=== PATIENT | female | born 1990 ===

== ENCOUNTER 2018-02-16 19:05 | Emergency (ER) | payer MEDICAID ==
[2018-02-16 19:15] VITALS: O2SAT 100; BMI 26.2
[2018-02-16 20:09] VITALS: PULSE 63
--- NOTE | 2018-02-16 20:19 | ED PDOC ---
HPI: Chest Pain Time Seen by Provider: 02/16/18 20:04 Chief Complaint (Nursing): Chest Pain Chief Complaint (Provider): chest pain History Per: Patient History/Exam Limitations: no limitations Onset/Duration Of Symptoms: Days (2), Waxing/Waning Current Symptoms Are (Timing): Still Present Quality: Pressure Exacerbating Factors: None Additional Complaint(s): 27 y/o female presents for evaluation of intermittent midsternal chest pressure x 2 days. Patient states when symptoms present she also feels her heart race briefly, making it difficult for her to catch her breath. Denies fever, headache, dizziness, cough, congestion, leg pain/swelling, recent travel, OCP use. Patient also reports left lower back/flank pain x 1 week; states she was evaluated at [facility] ED for same and diagnosed with a UTI and prescribed Macrobid and Ibuprofen but pain persists. Denies fever, nausea/vomiting, dysuria, hematuria. Past Medical History Reviewed: Historical Data, Nursing Documentation, Vital Signs Vital Signs: Last Vital Signs Temp 97.9 F 02/16/18 19:14 Pulse 63 02/16/18 20:10 Resp 23 02/16/18 20:10 BP 132/85 02/16/18 20:10 Pulse Ox 100 02/16/18 21:11 - Medical History PMH: No Chronic Diseases - Surgical History Other surgeries: heart sx for murmur age 11 - Family History Family History: States: Unknown Family Hx - Social History Current smoker - smoking cessation education provided: No Ex-Smoker (has not smoked in the last 12 months): No Alcohol: None Drugs: Denies - Immunization History Hx Tetanus Toxoid Vaccination: No Hx Influenza Vaccination: Yes (2015) Hx Pneumococcal Vaccination: No - Home Medications Home Medications: Ambulatory Orders Medication Instructions Recorded Ibuprofen [Motrin] 600 mg PO Q6 PRN #20 tab 02/12/18 Nitrofurantoin Macrocrystals 100 mg PO BID #10 cap 02/12/18 [Macrobid] - Allergies Allergies/Adverse Reactions: Allergies Allergy/AdvReac Type Severity Reaction Status Date / Time No Known Allergies Allergy Verified 01/20/17 17:54 Wells Criteria for PE - Wells Criteria for Pulmonary Embolism Clinical Signs and Symptoms of DVT: No P.E is #1 Diagnosis, or Equally Likely: No Heart Rate >100: No Immobilization at least 3 days;Surgery previous 4 weeks: No Previous, objectively diagnosed PE or DVT: No Hemoptysis: No Malignancy w/treatment within 6 months, or palliative: No Total Score: 0 Review of Systems ROS Statement: Except As Marked, All Systems Reviewed And Found Negative Cardiovascular: Positive for: Chest Pain, Palpitations Gastrointestinal: Positive for: Abdominal Pain (left flank pain) Musculoskeletal: Positive for: Back Pain Physical Exam - Reviewed Nursing Documentation Reviewed: Yes Vital Signs Reviewed: Yes - Physical Exam Appears: Positive for: Well, Non-toxic, No Acute Distress Head Exam: Positive for: ATRAUMATIC, NORMAL INSPECTION, NORMOCEPHALIC Skin: Positive for: Normal Color Eye Exam: Positive for: Normal appearance ENT: Positive for: Normal ENT Inspection Cardiovascular/Chest: Positive for: Regular Rate, Rhythm Respiratory: Positive for: Normal Breath Sounds Gastrointestinal/Abdominal: Positive for: Bowel Sounds, Soft, Tenderness (left flank) Back: Positive for: Normal Inspection Extremity: Positive for: Normal ROM Neurologic/Psych: Positive for: Alert, Oriented - Laboratory Results Result Diagrams: 02/16/18 20:36 02/16/18 20:36 - ECG ECG: Positive for: Viewed By Me (reviewed by ED attending) ECG Rhythm: Positive for: Sinus Rhythm (PACs) O2 Sat by Pulse Oximetry: 100 Pulse Ox Interpretation: Normal - Radiology X-Ray: Viewed By Me X-Ray Interpretation: No Acute Disease - Progress ED Course And Treament: labs, ekg, chest xray, CT renal protocol, IV toradol EXAM: CT Abdomen and Pelvis Without Intravenous Contrast EXAM DATE/TIME: 02/16/2018 8:59 PM CLINICAL HISTORY: 27 years old, female; Pain; Abdominal pain; Flank; Left; Additional info: Left flank pain TECHNIQUE: Axial computed tomography images of the abdomen and pelvis without intravenous contrast. All CT scans at this facility use at least one of these dose optimization techniques: automated exposure control; mA and/or kV adjustment per patient size (includes targeted exams where dose is matched to clinical indication); or iterative reconstruction. Coronal and sagittal reformatted images were created and reviewed. COMPARISON: There are no prior studies for comparison. FINDINGS: Lung bases: Heart size is normal. There is minimal atelectasis/scarring at the lung bases ABDOMEN: Liver: unremarkable Gallbladder and bile ducts: unremarkable Pancreas: unremarkable Spleen: unremarkable Adrenals: unremarkable Kidneys and ureters: unremarkable Stomach and bowel: Stomach is almost empty. Rotation is normal. Small bowel is mildly distended with fluid and air. There is no obstruction. Terminal ileum is distended with fluid. is unremarkable. There is moderate stool in the right colon.Colon is incompletely distended which limits evaluation. PELVIS: Appendix: See stomach and bowel Bladder: unremarkable Reproductive: Uterus and adnexal structures are unremarkable. ABDOMEN and PELVIS: Intraperitoneal space: There is a small amount of free fluid in the pelvis.There is no free air. Bones/joints: TheThere are no acute osseous abnormalities. Soft tissues: There is a small fat containing umbilical hernia. Vasculature: Vascular structures are unremarkable. Lymph nodes: There is shotty adenopathy. IMPRESSION: No renal or ureteral stones or hydronephrosis; mild ileus, no obstruction On re-eval, patient states she is feeling better Patient educated on findings, discharged with instructions to follow up PMD 2-3 days. Patient states she has a academic coordinator in mind she will follow up with. Return precautions given Disposition - Clinical Impression Clinical Impression: Chest pain, Palpitations, Flank pain - Patient ED Disposition Is Patient to be Admitted: No Counseled Patient/Family Regarding: Studies Performed, Diagnosis, Need For Followup - Disposition Disposition: Routine/Home Disposition Time: 22:32 Condition: IMPROVED Instructions: Flank Pain, Chest Pain, Palpitations Forms: [employer] (Danish)
[2018-02-16 20:43] LABS: BASO % 0.6 % (0.0-2.0); HEMOGLOBIN 12.1 g/dL (12.0-16.0); LYMPH # 2.1 K/uL (1.0-4.3); LYMPH % 41.8 % (20.0-40.0); MEAN CELL VOLUME 82.7 fl (81.0-99.0); MEAN CORPUSCULAR HEMOGLOBIN 27.3 pg (27.0-31.0); MONO # 0.5 K/uL (0.0-0.8); MONO % 9.4 % (0.0-10.0); NEUT # 2.4 K/uL (1.8-7.0); NEUT % 47.2 % (50.0-75.0); RBC 4.42 Mil/uL (3.80-5.20); RED CELL DISTRIBUTION WIDTH 15.7 % (11.5-14.5)
[2018-02-16 20:48] LABS: SQUAMOUS EPITHIAL < 1 /hpf (0-5); URINE BACTERIA RARE (<OCC); URINE BILIRUBIN NEGATIVE (NEGATIVE); URINE BLOOD LARGE (NEGATIVE); URINE CLARITY CLEAR (Clear); URINE COLOR STRAW (YELLOW); URINE GLUCOSE (UA) NEG (Normal); URINE LEUKOCYTE ESTERASE NEG Leu/uL (Negative); URINE PROTEIN NEGATIVE (NEGATIVE); URINE UROBILINOGEN 0.2-1.0 mg/dL (0.2-1.0)
[2018-02-16 20:50] LABS: ALB/GLOB RATIO 1.2 (1.0-2.1); ALBUMIN 4.6 g/dL (3.5-5.0); ALT/SGPT 27 U/L (9-52); AST/SGOT 21 U/L (14-36); BLOOD UREA NITROGEN 8 mg/dl (7-17); CALCIUM 9.4 mg/dL (8.4-10.2); GFR AFRICAN-AMERICAN > 60; GFR NON-AFRICAN AMERICAN > 60
[2018-02-16] MEDS: Sodium Chloride 0.9% 1,000 ML IV STA (20:51)
--- NOTE | 2018-02-16 22:25 | CT ---
EXAM: CT Abdomen and Pelvis Without Intravenous Contrast EXAM DATE/TIME: 02/16/2018 8:59 PM CLINICAL HISTORY: 27 years old, female; Pain; Abdominal pain; Flank; Left; Additional info: Left flank pain TECHNIQUE: Axial computed tomography images of the abdomen and pelvis without intravenous contrast. All CT scans at this facility use at least one of these dose optimization techniques: automated exposure control; mA and/or kV adjustment per patient size (includes targeted exams where dose is matched to clinical indication); or iterative reconstruction. Coronal and sagittal reformatted images were created and reviewed. COMPARISON: There are no prior studies for comparison. FINDINGS: Lung bases: Heart size is normal. There is minimal atelectasis/scarring at the lung bases ABDOMEN: Liver: unremarkable Gallbladder and bile ducts: unremarkable Pancreas: unremarkable Spleen: unremarkable Adrenals: unremarkable Kidneys and ureters: unremarkable Stomach and bowel: Stomach is almost empty. Rotation is normal. Small bowel is mildly distended with fluid and air. There is no obstruction. Terminal ileum is distended with fluid. is unremarkable. There is moderate stool in the right colon.Colon is incompletely distended which limits evaluation. PELVIS: Appendix: See stomach and bowel Bladder: unremarkable Reproductive: Uterus and adnexal structures are unremarkable. ABDOMEN and PELVIS: Intraperitoneal space: There is a small amount of free fluid in the pelvis.There is no free air. Bones/joints: TheThere are no acute osseous abnormalities. Soft tissues: There is a small fat containing umbilical hernia. Vasculature: Vascular structures are unremarkable. Lymph nodes: There is shotty adenopathy. IMPRESSION: No renal or ureteral stones or hydronephrosis; mild ileus, no obstruction
[2018-02-16 22:59] VITALS: BP 119/69; RESP 18; TEMP 98.2
--- NOTE | 2018-02-17 09:07 | RAD ---
HISTORY: chest pain COMPARISON: No prior. TECHNIQUE: Chest PA and lateral FINDINGS: LUNGS: No active pulmonary disease. PLEURA: No significant pleural effusion identified. No pneumothorax apparent. CARDIOVASCULAR: Sternotomy wires. Heart size normal. OSSEOUS STRUCTURES: No significant abnormalities. VISUALIZED UPPER ABDOMEN: Normal. OTHER FINDINGS: None. IMPRESSION: No active disease.
== END 2018-02-16 23:05 | disposition home or self-care (01) ==
LOC: H.ER 19:05
DX: R07.9 Chest pain, unspecified (principal); R00.2 Palpitations; M54.5 Low back pain
CPT/HCPCS: 71046; 74176; 80053; 81003; 81025; 84443; 84484; 85025; 87086; 96374; 99284; J1885; J7030

== ENCOUNTER 2018-07-15 15:37 | Emergency (ER) | payer MEDICAID ==
[2018-07-15 15:38] VITALS: BMI 26.2
[2018-07-15 17:00] VITALS: BP 125/80; PULSE 75; RESP 16; TEMP 97.9; O2SAT 99
--- NOTE | 2018-07-15 17:18 | ED PDOC ---
HPI: Abdomen Time Seen by Provider: 07/15/18 16:08 Chief Complaint (Nursing): Abdominal Pain Chief Complaint (Provider): Pelvic Pain History Per: Patient History/Exam Limitations: no limitations Onset/Duration Of Symptoms: Days Current Symptoms Are (Timing): Better Quality Of Discomfort: Burning Additional Complaint(s): 27 year old female with ovarian cyst presents to the ED for an evaluation of pelvic pain and cramping onset for one and half week. Patient is not on control because her symptoms improved and she stopped taking the pills. Also reports of midline lower back pain and describes it as a burning sensation. She did not take any medication for the pain. 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 Denies vomiting, hematuria, dysuria, frequency, incontinence, vaginal bleeding or discharge. Patient is not in pain now. PMD: [facility] ([place], [place]) Past Medical History Reviewed: Historical Data, Nursing Documentation, Vital Signs Vital Signs: Last Vital Signs Temp 97.9 F 07/15/18 16:59 Pulse 75 07/15/18 16:59 Resp 16 07/15/18 16:59 BP 125/80 07/15/18 16:59 Pulse Ox 99 07/15/18 16:59 - Medical History Other PMH: ovarian cyst - Family History Family History: States: Unknown Family Hx - Social History Current smoker - smoking cessation education provided: No Alcohol: None Drugs: Denies - Immunization History Hx Tetanus Toxoid Vaccination: No Hx Influenza Vaccination: Yes (2015) Hx Pneumococcal Vaccination: No - Home Medications Home Medications: Ambulatory Orders Medication Instructions Recorded Ibuprofen [Motrin] 600 mg PO Q6 PRN #20 tab 02/12/18 Nitrofurantoin Macrocrystals 100 mg PO BID #10 cap 02/12/18 [Macrobid] RX: Acetaminophen [Tylenol Extra 1,000 mg PO Q6 PRN #100 tablet 07/15/18 Strength] RX: Ibuprofen [Motrin Tab] 600 mg PO Q8 PRN #30 tab 07/15/18 - Allergies Allergies/Adverse Reactions: Allergies Allergy/AdvReac Type Severity Reaction Status Date / Time No Known Allergies Allergy Verified 07/15/18 15:47 Review of Systems ROS Statement: Except As Marked, All Systems Reviewed And Found Negative (As per HPI,otherwise negative) Constitutional: Negative for: Fever Respiratory: Negative for: Cough Gastrointestinal: Positive for: Abdominal Pain. Negative for: Vomiting Genitourinary Female: Negative for: Dysuria, Frequency, Incontinence, Hematuria, Vaginal Discharge, Vaginal Bleeding Musculoskeletal: Positive for: Back Pain Physical Exam - Reviewed Nursing Documentation Reviewed: Yes Vital Signs Reviewed: Yes - Physical Exam Appears: Positive for: Well (nourished), No Acute Distress Head Exam: Positive for: ATRAUMATIC, NORMOCEPHALIC Skin: Positive for: Warm, Dry Eye Exam: Positive for: EOMI, PERRL Neck: Positive for: Painless ROM, Supple Cardiovascular/Chest: Positive for: Regular Rate, Rhythm. Negative for: Murmur Respiratory: Positive for: Normal Breath Sounds. Negative for: Respiratory Distress Gastrointestinal/Abdominal: Positive for: Normal Exam, Soft. Negative for: Tenderness, Distended, Guarding, Rebound Back: Positive for: Normal Inspection. Negative for: L CVA Tenderness, R CVA Tenderness Extremity: Positive for: Normal ROM. Negative for: Tenderness, Deformity Lymphatic: Negative for: Adenopathy Neurologic/Psych: Positive for: Alert, Oriented (x3). Negative for: Motor/Sensory Deficits - ECG O2 Sat by Pulse Oximetry: 99 (RA) Pulse Ox Interpretation: Normal Medical Decision Making Medical Decision Making: Time: 1619 Initial Impression: pelvic pain and back pain Initial Plan: ED Urine Dipstick ED Urine Chlamydia/GC RNA, TMA Stat Ibuprofen 600mg Acetaminophen 975mg Reevaluation Urine dipstick is negative for , leukocytes and RBC. Patient will be given symptomatic treatment and advised to follow up with health director. Upon provider reevaluation patient is feeling better, is medically stable, and requires no further treatment in the ED at this time. Patient will be discharged home with Tylenol 1000mg and Motrin 600mg for pain. Counseling was provided and all questions were answered regarding diagnosis and need for follow up with clinic or health director. There is agreement to discharge plan. Return if symptoms persist or worsen. ----- Scribe Attestation: Documented by Roge Tidwell, acting as a scribe for Mary Shrestha MD. Provider Scribe Attestation: All medical record entries made by the Scribe were at my direction and personally dictated by me. I have reviewed the chart and agree that the record accurately reflects my personal performance of the history, physical exam, medical decision making, and the department course for this patient. I have also personally directed, reviewed, and agree with the discharge instructions and disposition. Disposition - Clinical Impression Clinical Impression: Pelvic cramping, Back pain - Patient ED Disposition Is Patient to be Admitted: No Counseled Patient/Family Regarding: Studies Performed, Diagnosis, Need For Followup - Disposition Referrals: [facility] [Provider Group] [facility] [Outside] Disposition: Routine/Home Disposition Time: 17:00 Condition: STABLE Additional Instructions: PLEASE FOLLOW UP AT CLINIC OR YOUR OVERNIGHT STOCKER WITHIN A WEEK FOR FURTHER EVALUATION. Prescriptions: RX: Acetaminophen [Tylenol Extra Strength] 1,000 mg PO Q6 PRN #100 tablet PRN Reason: pain RX: Ibuprofen [Motrin Tab] 600 mg PO Q8 PRN #30 tab PRN Reason: Pain, Moderate (4-7) Instructions: Low Back Pain (DC), Acute Pelvic Pain (DC) Forms: [facility] ED School/Work Excuse
== END 2018-07-15 17:01 | disposition home or self-care (01) ==
LOC: H.ER 15:37
DX: R10.2 Pelvic and perineal pain (principal); M54.9 Dorsalgia, unspecified

== ENCOUNTER 2018-11-24 19:48 | Emergency (ER) | payer MEDICAID ==
[2018-11-24 19:48] VITALS: BMI 26.2
--- NOTE | 2018-11-24 20:30 | ED PDOC ---
HPI: Abdomen Time Seen by Provider: 11/24/18 20:28 Chief Complaint (Nursing): Abdominal Pain Chief Complaint (Provider): abdominal pain History Per: Patient (28 y/o female here LMP 11/10/2018 with abdominal crampy pain for 1 week after period was over. Denies any N/V/D/fevers/chills/vaginal bleeding. Denies any dysuria/hematuria/urinary frequency. No h/o abd surgeries . Took tylenol today. NOtes left leg/thigh pain today associated with symptoms.) Past Medical History Reviewed: Historical Data, Nursing Documentation, Vital Signs Vital Signs: Last Vital Signs Temp 98.4 F 11/24/18 20:05 Pulse 73 11/24/18 20:05 Resp 16 11/24/18 20:05 BP 144/80 11/24/18 20:05 Pulse Ox 99 11/24/18 20:05 - Family History Family History: States: Unknown Family Hx - Immunization History Hx Tetanus Toxoid Vaccination: No Hx Influenza Vaccination: Yes (2015) Hx Pneumococcal Vaccination: No - Home Medications Home Medications: Ambulatory Orders Medication Instructions Recorded Ibuprofen [Motrin] 600 mg PO Q6 PRN #20 tab 02/12/18 Nitrofurantoin Macrocrystals 100 mg PO BID #10 cap 02/12/18 [Macrobid] Acetaminophen [Tylenol Extra 1,000 mg PO Q6 PRN #100 tablet 07/15/18 Strength] Ibuprofen [Motrin Tab] 600 mg PO Q8 PRN #30 tab 07/15/18 Naproxen 375 mg PO Q8 PRN #21 tablet 11/24/18 - Allergies Allergies/Adverse Reactions: Allergies Allergy/AdvReac Type Severity Reaction Status Date / Time No Known Allergies Allergy Verified 11/24/18 20:05 Review of Systems ROS Statement: Except As Marked, All Systems Reviewed And Found Negative Physical Exam - Reviewed Nursing Documentation Reviewed: Yes Vital Signs Reviewed: Yes - Physical Exam Appears: Positive for: Well, Non-toxic, No Acute Distress Head Exam: Positive for: ATRAUMATIC, NORMAL INSPECTION, NORMOCEPHALIC Skin: Positive for: Normal Color, Warm, DRY Eye Exam: Positive for: EOMI, Normal appearance, PERRL ENT: Positive for: Normal ENT Inspection Neck: Positive for: Normal, Painless ROM Cardiovascular/Chest: Positive for: Regular Rate, Rhythm Respiratory: Positive for: CNT, Normal Breath Sounds Gastrointestinal/Abdominal: Positive for: Normal Exam, Soft, Tenderness (bilateral lower abdominal pain) Pelvic Exam: Positive for: Tender Adnexa (left adnexa tenderness) Back: Positive for: Normal Inspection Extremity: Positive for: Normal ROM Neurological/Psych: Positive for: Awake, Alert, Normal Tone - Laboratory Results Result Diagrams: 11/24/18 20:42 11/24/18 20:42 - ECG O2 Sat by Pulse Oximetry: 99 - Progress ED Course And Treament: chlamydia/gonorrhea cx sent toradol 15mg iv Patient notes improvement of left leg pain with toradol Medical Decision Making Medical Decision Makin:55 US Comparison None available. Technique TA/TV Findings Uterus Retroverted measures 7.1 x 4.2 x 5.5 cm. No fibroid or other mass lesion seen. Endometrium Measures 11 mm in diameter. Unremarkable. Right ovary Measures 3.5 x 3.2 x 3.3 cm. No solid mass. Normal flow. Cyst measures 2.2 x 1.2 x 1.8 cm. Left ovary Measures 2.5 x 1.3 x 2.1 cm. No solid mass. Normal flow. Follicles. Free fluid No significant free fluid noted. Other Findings None. Impression 1. Retroverted uterus. 2. Right ovarian cyst. 3. Left ovarian follicles. Disposition - Clinical Impression Clinical Impression: Ovarian cyst, right - Patient ED Disposition Is Patient to be Admitted: No - Disposition [facility] [[facility]] Disposition: Routine/Home Disposition Time: 23:46 Condition: FAIR Prescriptions: Naproxen 375 mg PO Q8 PRN #21 tablet PRN Reason: Pain, Moderate (4-7) Instructions: Ovarian Cysts Forms: [facility] ED School/Work Excuse
[2018-11-24 20:49] LABS: SQUAMOUS EPITHIAL < 1 /hpf (0-5); URINE BILIRUBIN NEGATIVE (NEGATIVE); URINE BLOOD NEGATIVE (NEGATIVE); URINE CLARITY SLIGHTY-CLOUDY (Clear); URINE COLOR YELLOW (YELLOW); URINE GLUCOSE (UA) NEG (NEGATIVE); URINE LEUKOCYTE ESTERASE NEG Leu/uL (Negative); URINE PROTEIN NEGATIVE (NEGATIVE); URINE UROBILINOGEN 0.2-1.0 mg/dL (0.2-1.0)
[2018-11-24 21:09] LABS: BASO % 0.4 % (0.0-2.0); EOS # 0.1 K/uL (0.0-0.7); EOS % 0.9 % (0.0-4.0); HEMOGLOBIN 10.9 g/dL (12.0-16.0); LYMPH # 2.6 K/uL (1.0-4.3); LYMPH % 31.1 % (20.0-40.0); MEAN CELL VOLUME 78.9 fl (81.0-99.0); MEAN CORPUSCULAR HEMOGLOBIN 25.9 pg (27.0-31.0); MEAN CORPUSCULAR HGB CONC 32.8 g/dL (33.0-37.0); MEAN PLATELET VOLUME 9.8 fl (7.2-11.7); MONO # 0.8 K/uL (0.0-0.8); MONO % 9.3 % (0.0-10.0); NEUT # 4.9 K/uL (1.8-7.0); NEUT % 58.3 % (50.0-75.0); NRBC % 0.3 % (0.0-0.0); RBC 4.21 Mil/uL (3.80-5.20); RED CELL DISTRIBUTION WIDTH 15.5 % (11.5-14.5); WHITE BLOOD COUNT 8.5 K/uL (4.8-10.8)
[2018-11-24 21:25] LABS: ALB/GLOB RATIO 1.3 (1.0-2.1); ALBUMIN 4.3 g/dL (3.5-5.0); ALT/SGPT 19 U/L (9-52); AST/SGOT 27 U/L (14-36); BLOOD UREA NITROGEN 10 mg/dl (7-17); CALCIUM 9.3 mg/dL (8.4-10.2); GFR NON-AFRICAN AMERICAN > 60; LIPASE 71 U/L (23-300)
[2018-11-24 23:08] VITALS: RESP 18
[2018-11-25 00:45] VITALS: BP 136/76; PULSE 78; TEMP 98.8
[2018-11-25 05:39] VITALS: O2SAT 99
--- NOTE | 2018-11-25 12:41 | US ---
Date of service: 11/24/2018 HISTORY: Lower abdominal pain COMPARISON: No prior study available comparison TECHNIQUE: Transvaginal sonographic evaluation of the pelvis performed FINDINGS: UTERUS: Measures 7.1 x 4.2 x5.5 cm. Retroverted normal in size and appearance. No fibroid or other mass lesion seen. ENDOMETRIUM: Measures 1.1 mm in diameter. Unremarkable. CERVIX: No cervical abnormality identified. RIGHT OVARY: Measures 3.5 x 3.2 x 3.3 cm. No solid mass. Normal flow. There is a small ovarian cyst measuring 2.2 x 1.2 x 1.8 cm LEFT OVARY: Measures 0.5 x 1.3 x 2.1 cm. No solid mass. Normal flow. FREE FLUID: No significant free fluid noted. OTHER FINDINGS: None. IMPRESSION: Left ovarian cyst otherwise unremarkable study.
== END 2018-11-25 00:40 | disposition home or self-care (01) ==
LOC: H.ER 19:48
DX: N83.201 Unspecified ovarian cyst, right side (principal); N83.202 Unspecified ovarian cyst, left side; N85.4 Malposition of uterus
CPT/HCPCS: 76830; 80053; 81003; 81025; 83690; 85025; 87086; 87491; 87591; 96374; 99284; J1885

== ENCOUNTER 2019-01-17 01:48 | Emergency (ER) | payer MEDICAID ==
[2019-01-17 01:48] VITALS: BMI 26.2
[2019-01-17 02:19] VITALS: RESP 18
--- NOTE | 2019-01-17 04:24 | ED PDOC ---
HPI: Chest Pain Time Seen by Provider: 01/17/19 02:08 Chief Complaint (Nursing): Chest Pain Chief Complaint (Provider): Chest Pain History Per: Patient History/Exam Limitations: no limitations Onset/Duration Of Symptoms: Days (x7) Exacerbating Factors: Turning, Movement, Deep Breathing Additional Complaint(s): 28 years old female with history of open heart surgery at age of 10 for "heart murmur" presents to ER for evaluation of left sided chest pain that started 2 h ours ago. Patient reports pain is worse with moving, turning, twisting or taking a deep breath. She states pain is non-radiating and is not associated with shortness of breath. Patient reports taking 1 tablet of ibuprofen prior to arrival. PMD: None provided Past Medical History Reviewed: Historical Data, Nursing Documentation, Vital Signs Vital Signs: Last Vital Signs Temp 98.4 F 01/17/19 02:15 Pulse 97 H 01/17/19 02:15 Resp 18 01/17/19 02:15 BP 125/74 01/17/19 02:15 Pulse Ox 98 01/17/19 02:15 Primary Care Provider: FAMILY PROVIDER,NO - Medical History PMH: Arthritis - Surgical History Other surgeries: Open heart surgery - Family History Family History: States: Unknown Family Hx - Social History Current smoker - smoking cessation education provided: No Alcohol: None Drugs: Denies - Immunization History Hx Tetanus Toxoid Vaccination: No Hx Influenza Vaccination: Yes (2015) Hx Pneumococcal Vaccination: No - Home Medications Home Medications: Ambulatory Orders Medication Instructions Recorded Ibuprofen [Motrin] 600 mg PO Q6 PRN #20 tab 02/12/18 Nitrofurantoin Macrocrystals 100 mg PO BID #10 cap 02/12/18 [Macrobid] Acetaminophen [Tylenol Extra 1,000 mg PO Q6 PRN #100 tablet 07/15/18 Strength] Ibuprofen [Motrin Tab] 600 mg PO Q8 PRN #30 tab 07/15/18 Naproxen 375 mg PO Q8 PRN #21 tablet 11/24/18 Azithromycin [Zithromax] 2 tab PO ONCE #2 tablet 12/02/18 Azithromycin 250 mg PO DAILY #4 tablet 01/17/19 Cyclobenzaprine [Cyclobenzaprine 10 mg PO BID #15 tab 01/17/19 HCl] Ibuprofen [Motrin Tab] 600 mg PO Q6 #30 tab 01/17/19 - Allergies Allergies/Adverse Reactions: Allergies Allergy/AdvReac Type Severity Reaction Status Date / Time No Known Allergies Allergy Verified 11/24/18 20:05 Review of Systems ROS Statement: Except As Marked, All Systems Reviewed And Found Negative Cardiovascular: Positive for: Chest Pain Respiratory: Negative for: Shortness of Breath Physical Exam - Reviewed Nursing Documentation Reviewed: Yes Vital Signs Reviewed: Yes - Physical Exam Appears: Positive for: Well, No Acute Distress Head Exam: Positive for: ATRAUMATIC, NORMOCEPHALIC Skin: Positive for: Normal Color, Warm, Dry Eye Exam: Positive for: Normal appearance, EOMI, PERRL ENT: Positive for: Normal ENT Inspection Neck: Positive for: Normal, Painless ROM, Supple Cardiovascular/Chest: Positive for: Regular Rate, Rhythm. Negative for: Murmur Respiratory: Positive for: Normal Breath Sounds, Other (Tenderness to palpation of left chest wall). Negative for: Respiratory Distress Gastrointestinal/Abdominal: Positive for: Normal Exam, Soft. Negative for: Tenderness Back: Positive for: Normal Inspection. Negative for: L CVA Tenderness, R CVA Tenderness Extremity: Positive for: Normal ROM. Negative for: Pedal Edema, Swelling Neurological/Psych: Positive for: Awake, Alert, Oriented (x3) - Laboratory Results Result Diagrams: 01/17/19 05:15 01/17/19 05:15 - ECG O2 Sat by Pulse Oximetry: 98 (RA) Pulse Ox Interpretation: Normal Medical Decision Making Medical Decision Making: Time: 218 A/P: musculoskeletal pain, not concerned for PE (PERC negative) --EKG --CXR --Flexeril 10 mg PO --Toradol 30 mg IM 500 --Patient improving --PNA on CXR --No signs of sepsis --Strongly encouraged patient to followup with her PMD in 2 days ([facility]) --Well appearing upon dicharge Scribe Attestation: Documented by Kavya Riley acting as a scribe for Matt Garza MD. Provider Scribe Attestation: All medical record entries made by the Scribe were at my direction and personally dictated by me. I have reviewed the chart and agree that the record accurately reflects my personal performance of the history, physical exam, medical decision making, and the department course for this patient. I have also personally directed, reviewed, and agree with the discharge instructions and di sposition. Disposition - Clinical Impression Clinical Impression: Pneumonia - Patient ED Disposition Is Patient to be Admitted: No Counseled Patient/Family Regarding: Studies Performed, Rx Given - Disposition Referrals: [facility] [Outside] Disposition: Routine/Home Disposition Time: 06:35 Condition: IMPROVED Additional Instructions: Please followup with your doctor latest by . If you feel worse or new symptoms arise between now and then, please return to the E.R. for a re- evaluation. Prescriptions: Azithromycin 250 mg PO DAILY #4 tablet Cyclobenzaprine [Cyclobenzaprine HCl] 10 mg PO BID #15 tab Ibuprofen [Motrin Tab] 600 mg PO Q6 #30 tab Instructions: Community-Acquired Pneumonia, Adult (DC) Forms: [employer] ([place])
[2019-01-17] MEDS ORDERED: Sodium Chloride 0.9% 1,000 ML IV STA (04:49)
[2019-01-17 05:23] LABS: VENOUS BLOOD GAS BASE EXCESS 2.7 mmol/L (0.0-2.0); VENOUS BLOOD GAS PCO2 44 mmHg (40-60); VENOUS BLOOD GAS PO2 62 mm/Hg (30-55); VENOUS BLOOD PH 7.41 (7.32-7.43)
[2019-01-17 05:28] LABS: BASO % 0.6 % (0.0-2.0); EOS % 0.7 % (0.0-4.0); HEMOGLOBIN 9.6 g/dL (12.0-16.0); LYMPH # 1.9 K/uL (1.0-4.3); LYMPH % 29.8 % (20.0-40.0); MEAN CELL VOLUME 74.6 fl (81.0-99.0); MEAN CORPUSCULAR HEMOGLOBIN 23.9 pg (27.0-31.0); MEAN CORPUSCULAR HGB CONC 32.1 g/dL (33.0-37.0); MEAN PLATELET VOLUME 8.6 fl (7.2-11.7); MONO # 0.7 K/uL (0.0-0.8); MONO % 11.4 % (0.0-10.0); NEUT # 3.6 K/uL (1.8-7.0); NEUT % 57.5 % (50.0-75.0); RBC 4.01 Mil/uL (3.80-5.20); RED CELL DISTRIBUTION WIDTH 15.8 % (11.5-14.5); WHITE BLOOD COUNT 6.3 K/uL (4.8-10.8)
[2019-01-17 05:38] LABS: BLOOD UREA NITROGEN 10 mg/dl (7-17); CALCIUM 8.8 mg/dL (8.4-10.2); GFR NON-AFRICAN AMERICAN > 60
[2019-01-17 06:52] VITALS: BP 110/48; PULSE 91; TEMP 97.9; O2SAT 99
--- NOTE | 2019-01-17 08:17 | CARD ---
APPROVED REPORT Date of service: 01/17/2019 EKG Measurement Heart [id number] <Conclusion> Normal sinus rhythm Normal ECG
--- NOTE | 2019-01-17 08:33 | RAD ---
Date of service: 01/17/2019 HISTORY: chest pain COMPARISON: 02/16/2018 TECHNIQUE: Chest PA and lateral views FINDINGS: LUNGS: Interval opacity left mid-upper lung zone blending with left hilum. Left hilum assessment limited as a result. Right lung clear. PLEURA: No significant pleural effusion identified. No pneumothorax apparent. CARDIOVASCULAR: No aortic atherosclerotic calcification present. Normal cardiac size. No pulmonary vascular congestion. Midline sternotomy. Similar OSSEOUS STRUCTURES: Midline sternotomy-similar VISUALIZED UPPER ABDOMEN: Normal. OTHER FINDINGS: None. IMPRESSION: Interval left upper lobe infiltrate blending with left hilum. Recommend follow-up to ensure complete resolution after treatment completed.. Comments: Study marked for PA review . Comments: No preliminary ER impression at this time.
== END 2019-01-17 06:51 | disposition home or self-care (01) ==
LOC: H.ER 01:48
DX: J18.9 Pneumonia, unspecified organism (principal)
CPT/HCPCS: 71046; 80048; 81025; 82803; 84484; 85025; 93005; 96372; 96374; 99283; J1885; J2270; J7030